=== PATIENT | male | born 1955 | race Caucasian/White ===

== ENCOUNTER 2023-08-07 05:50 | Day surgery (SDC) | payer MEDICARE, OTHER ==
[2023-08-01 10:12] VITALS: BP 144/89
[~2023-08-07] VITALS: Ht 190.5 cm; Wt 165.0 kg
[~2023-08-07 05:50] MED LIST: ADULT LOW DOSE81 MG PO; ATENOLOL-CHLOR1 EACH PO; LISINOPRIL20 MG PO; METFORMIN HCL500 MG PO; SIMVASTATIN20 MG PO
[2023-08-07 06:08] VITALS: BP 136/84
[2023-08-07 08:40] VITALS: BP 133/48
--- NOTE | 2023-08-07 08:48 | NUR ---
08/07/23 0848 Rosalee Delatorre 0801 PT TO PACU FROM OR. ALERT AND AWAKE. RESPIRATIONS EVEN AND UNLABORED. 0810 PT C/O SLIGHT ABDOMINAL DISCOMFORT. ENCOURAGED PT TO PASS GAS. 0817 DR LOVELL AT BEDSIDE TO DISCUSS RESULTS. 0825 WRITTEN AND VERBAL DISCHARGE INSTRUCTIONS GIVEN TO PT, ALSO POLYP INFORMATION GIVEN (WRITTEN). NO COMPLAINTS AT THIS TIME. 0830 PT DC'D PER WC TO HOME WITH .
--- NOTE | 2023-08-07 09:29 | OR ---
[facility] [address], [place] [address] Signed DATE OF OPERATION: 08/07/2023 SURGEON: Ramana Lovell MD PREOPERATIVE DIAGNOSES: 1. Positive Cologuard test. 2. Hyperplastic polyps in 2008. 3. Internal hemorrhoids. 4. Sister with colon cancer at age 42. POSTOPERATIVE DIAGNOSES: 1. 4 mm polypoid lesion on ileocecal valve. 2. 4 mm polyp at 50 cm in the left colon. 3. Minimal left-sided diverticulosis. 4. Moderate internal hemorrhoids. PROCEDURE: Colonoscopy with hot biopsy. ESTIMATED BLOOD LOSS: None. INDICATIONS: Colton is a 67-year-old obese diabetic gentleman, asked to see me for a colonoscopy. He actually had a colonoscopy in [address] Gutierrez. He had hyperplastic polyps removed. He was told to follow up in 5 years. He told me today that indeed his sister was diagnosed with colon cancer at the age of 42. She lives in [place] and has . He is also said to have internal hemorrhoids. We know that his Cologuard test came back positive recently. He said he has no lower GI complaints. In the office, I gave Colton a pamphlet on colonoscopy. We had reviewed the nature of the test. There is risk including, but not limited to gas bloating, crampy abdominal pain, bleeding, perforation requiring surgery, and missed diagnosis. We also reviewed the need for monitored anesthesia care given his rather large full face, neck, chest and abdomen along with his diabetes. He had expressed understanding and wished to proceed. DESCRIPTION OF PROCEDURE: Colton was taken into our endoscopy suite and placed in the left lateral decubitus position. He was given monitored anesthesia care per our nurse senior center manager. A digital rectal exam was performed and he has good sphincter tone without any significant external hemorrhoids. There were no masses. He is a very large man and I could not Electronically Signed By: RAMANA LOVELL MD 08/07/23 0929 PATIENT NAME: COLTON AUSTIN OPERATIVE REPORT DATE OF : 57 REPORT #: [id number] PHYSICIAN: RAMANA LOVELL MD PCP: RAYNA SEARS PA-C REPORT IS CONFIDENTIAL AND NOT TO BE RELEASED WITHOUT AUTHORIZATION [facility] [address], [place] [address] Signed reach the prostate gland. The adult colonoscope was introduced and advanced quite readily up into the cecum without difficulty. His prep was quite good. He had a few areas of liquid stool, which was easily suctioned out. We could easily see the appendiceal orifice and the ileocecal valve. There was just a tiny polypoid lesion on the ileocecal valve, which we removed easily with the hot biopsy forceps. We had taken pictures throughout for photodocumentation. He had a very tiny flat 4 mm polyp in his left colon at 50 cm. It was easily removed with the help of a hot biopsy forceps. He also has left-sided diverticulosis. There are small to moderate in size, few in number and scattered about. Once in the rectum, we had retroflexed the scope and he clearly has moderate internal hemorrhoids. I suspect this is the reason his Cologuard test was positive. After this, the gas was suctioned out and the colonoscope removed. Colton tolerated the procedure quite well. RECOMMENDATIONS: I will see Colton back in my office in 7 to 14 days to review his results. He will probably stay on the five year plan given the fact that his sister had colon cancer at age 42. Ramana Lovell MD ALB/MODL /[id number] cc: MD Rayna Handy PA Copies: RAMANA LOVELL MD ~ Electronically Signed By: RAMANA LOVELL MD 08/07/23 0929 PATIENT NAME: COLTON AUSTIN OPERATIVE REPORT DATE OF : 57 REPORT #: [id number] PHYSICIAN: RAMANA LOVELL MD PCP: RAYNA SEARS PA-C REPORT IS CONFIDENTIAL AND NOT TO BE RELEASED WITHOUT AUTHORIZATION
--- NOTE | 2023-08-08 14:58 | PATH ---
[facility] [address], [place] [address] Signed SPECIMEN(S): A ILEOCECAL VALVE COLON BIOPSY SPECIMEN(S): B DESCENDING/LEFT COLON POLYP AT 50 CM SPECIMEN SOURCE: A. ILEOCECAL VALVE COLON BIOPSY B. DESCENDING/LEFT COLON POLYP AT 50 CM CLINICAL HISTORY: Guaiac + stool. Family history of colon cancer. FINAL PATHOLOGIC DIAGNOSIS: A. Ileocecal valve colon biopsy: - Fragment of benign small bowel type mucosa, negative for specific diagnostic abnormality. B. Descending/left colon polyp at 50 cm: - Hyperplastic polyp (one fragment). JVR:stephanie MICROSCOPIC EXAMINATION: Histologic sections of all submitted blocks are examined by light microscopy. These findings, together with the gross examination, support the pathologic diagnosis. GROSS DESCRIPTION: A. The specimen, labeled and designated "Kd, P," and designated on the requisition "ileum, ileocecal valve biopsy," is received in formalin and consists of one conner soft tissue fragment measuring 0.3 x 0.2 x 0.2 cm, the specimen is submitted entirely in (A1). B. The specimen, labeled and designated "Kd, P," and designated on the requisition "colon, descending/left polypectomy at 50 cm," is received in formalin and consists of one conner soft tissue fragment measuring 0.4 x 0.2 x 0.2 cm, the specimen is submitted entirely in (B1). [facility] (under the direct supervision of a pathologist) The Gross Description was prepared using a voice recognition system. The report was reviewed for accuracy; however, sound-alike word errors, addition and/or deletions may occur. If there is any question about this report, please contact Client Services. ADDITIONAL NOTES: Immunohistochemical and/or in situ hybridization studies if performed in this case included appropriate positive controls that reacted as expected. This PATIENT NAME: FAUSTINO AUSTIN PATHOLOGY DATE OF : 57 REPORT #: [id number] PHYSICIAN: JAVY PATHOLOGY PCP: RAYNA SEARS PA-C REPORT IS CONFIDENTIAL AND NOT TO BE RELEASED WITHOUT AUTHORIZATION [facility] [address] [facility] [place], [place] [address] Signed test was developed and its performance characteristics determined by [facility]. It has not been cleared or approved by the U.S. Food and Drug Administration. The FDA has determined that such clearance or approval is not necessary. This test is used for clinical purposes. It should not be regarded as investigational or for research. [facility] is certified under the Clinical Laboratory Improvement Amendments of 1988 (CLIA) as qualified to perform high complexity clinical laboratory testing. PERFORMING LABORATORY: Technical component was performed by [facility], [address] [place] [id number] (CLIA# [id number]). Professional interpretation was performed by [facility], [address] [place] [id number] (CLIA#: [id number]). Diagnostician: Viraj Aguirre MD Pathologist Electronically Signed 08/08/2023 Copies: ~ PATIENT NAME: FAUSTINO AUSTIN PATHOLOGY DATE OF : 57 REPORT #: [id number] PHYSICIAN: JAVY PATHOLOGY PCP: RAYNA SEARS PA-C REPORT IS CONFIDENTIAL AND NOT TO BE RELEASED WITHOUT AUTHORIZATION
== END 2023-08-07 08:30 | disposition home or self-care (01) ==
LOC: DS 05:50 → OPS 05:50 → DS 07:30 → OPS 07:30 → DS 09:45
PROVIDERS: ATTEND Colon & Rectal Surgery
PROC: 0DBC8ZZ Excision of Ileocecal Valve, Via Natural or Artificial Opening Endoscopic (ICD-10-PCS; 2023-08-07)
PROC: 0DBM8ZZ Excision of Descending Colon, Via Natural or Artificial Opening Endoscopic (ICD-10-PCS; principal; 2023-08-07 07:30)
DX: K63.5 Polyp of colon (principal); Z86.010 Personal history of colon polyps; K64.8 Other hemorrhoids; Z80.0 Family history of malignant neoplasm of digestive organs; R19.5 Other fecal abnormalities; K57.30 Diverticulosis of large intestine without perforation or abscess without bleeding
CPT/HCPCS: 00811; 88305; J2001; J2704; J3010; J3490; J7121